=== PATIENT | male | born 1950 | race American Indian/Alaskan Native ===

== ENCOUNTER 2019-10-01 02:44 | Emergency (ER) | payer MEDICARE ==
[2019-10-01 04:17] LABS: Basophils % (Auto) 0.7 % (0.0-1.8); Eosinophils # (Auto) 0.1 K/mm3 (0.0-0.4); Hematocrit 34.9 % (35.5-45.6); Hemoglobin 11.9 gm/dl (11.8-15.2); Lymphocytes # (Auto) 1.5 K/mm3 (1.2-5.4); Lymphocytes % (Auto) 22.7 % (13.4-35.0); Mean Corpuscular HGB Conc 34 % (32-34); Mean Corpuscular Volume 93 fl (84-94); Monocytes # (Auto) 0.6 K/mm3 (0.0-0.8); Monocytes % (Auto) 8.8 % (0.0-7.3); Platelet Count 220 K/mm3 (140-440); Red Blood Count 3.75 M/mm3 (3.65-5.03)
[2019-10-01 04:38] LABS: Albumin 4.1 g/dL (3.9-5)
--- NOTE | 2019-10-01 04:57 | Event Note ---
Date: 10/01/19 69-year-old gentleman presenting with difficulty having a bowel movement x4 hours. Has no additional complaints. Abdomen is soft and benign, with no rebound, guarding or peritoneal signs, and normal bowel sounds. Has no history of abdominal surgeries. He believes that he is constipated. Denies fever, cough, sands virus Laboratory studies sent prior to my personal evaluation. Suspect constipation. X-ray abdomen pelvis is ordered. Vital Signs 10/01/19 03:27 Temperature 98.0 F Pulse Rate 51 L Respiratory 18 Rate Blood Pressure 121/54 [Right] O2 Sat by Pulse 99 Oximetry Lab Results 10/01/19 10/01/19 Range/Units 03:37 03:37 WBC 6.6 (4.5-11.0) K/mm3 RBC 3.75 (3.65-5.03) M/mm3 Hgb 11.9 (11.8-15.2) gm/dl Hct 34.9 L (35.5-45.6) % MCV 93 (84-94) fl MCH 32 (28-32) pg MCHC 34 (32-34) % RDW 14.0 (13.2-15.2) % Plt Count 220 (140-440) K/mm3 Lymph % (Auto) 22.7 (13.4-35.0) % [place] % (Auto) 8.8 H (0.0-7.3) % Eos % (Auto) 2.0 (0.0-4.3) % Baso % (Auto) 0.7 (0.0-1.8) % Lymph # 1.5 (1.2-5.4) K/mm3 [place] # 0.6 (0.0-0.8) K/mm3 Eos # 0.1 (0.0-0.4) K/mm3 Baso # 0.0 (0.0-0.1) K/mm3 Seg Neutrophils % 65.8 (40.0-70.0) % Seg Neutrophils # 4.3 (1.8-7.7) K/mm3 Sodium 137 (137-145) mmol/L Potassium 3.9 (3.6-5.0) mmol/L Chloride 102.0 (98-107) mmol/L Carbon Dioxide 22 (22-30) mmol/L Anion Gap 17 mmol/L BUN 25 H (9-20) mg/dL Creatinine 1.7 H (0.8-1.5) mg/dL Estimated GFR 48 ml/min BUN/Creatinine Ratio 15 % Glucose 141 H (75-100) mg/dL Calcium 9.0 (8.4-10.2) mg/dL Total Bilirubin 0.30 (0.1-1.2) mg/dL AST 18 (5-40) units/L ALT 12 (7-56) units/L Alkaline Phosphatase 84 (35-129) units/L Total Protein 7.1 (6.3-8.2) g/dL Albumin 4.1 (3.9-5) g/dL Albumin/Globulin Ratio 1.4 % Lipase 17 (13-60) units/L
--- NOTE | 2019-10-01 05:29 | XRay Report ---
SUPINE ABDOMEN 10/01/2019 INDICATION / CLINICAL INFORMATION: constipation. COMPARISON: None available. FINDINGS: Fecal retention is noted in the right colon, splenic flexure and rectosigmoid. No significant small bowel gaseous distention. Signer Name: Mark Varghese MD Signed: 10/01/2019 5:25 AM Workstation Name: [id number]
[2019-10-01] MEDS ORDERED: LACTULOSE 20 GM/30 ML ORAL LIQD PO ONE (06:36)
--- NOTE | 2019-10-01 06:41 | Emergency Department Report ---
HPI - General Chief Complaint: Abdominal Pain Time Seen by Provider: 10/01/19 06:13 - HPI HPI: Room 3 The patient is a 69-year-old male present with a chief complaint of constipation. Patient states she has been constipated since midnight. Patient states she has abdominal pain/fullness feeling as though he has to have a bowel movement but he is been unable to pass stool. Patient states his last bowel movement occurred 09/29/2019 and was within normal limits. Patient denies nausea or vomiting. ED Past Medical Hx - Past Medical History Hx Hypertension: Yes Hx of Cancer: Yes (bone and prostate s/p xrt ~2012) - Surgical History Past Surgical History?: Yes Additional Surgical History: foot, prostate - Family History Family history: no significant - Social History Smoking Status: Former Smoker (None since 1982) Substance Use Type: None (Denies illicit drug use), Alcohol (Occasional) - Medications Home Medications: Home Medications Medication Instructions Recorded Confirmed Last Taken Type Docusate Sodium [Colace] 100 mg PO BID PRN #60 capsule 10/01/19 Unknown Rx [id number]/Sod Sulf,Bicarb,Cl/KCl 4,000 ml PO ONCE #4000 ml 10/01/19 Unknown Rx [Golytely Solution] ED Review of Systems ROS: Stated complaint: CONSTIPATION Other details as noted in HPI Constitutional: no symptoms reported Eyes: denies: eye pain ENT: denies: throat pain Respiratory: no symptoms reported Cardiovascular: denies: chest pain Endocrine: no symptoms reported Gastrointestinal: abdominal pain, constipation. denies: nausea, vomiting Musculoskeletal: denies: back pain Neurological: denies: headache Physical Exam - Physical Exam Vital Signs: Vital Signs 10/01/19 03:27 Temperature 98.0 F Pulse Rate 51 L Respiratory 18 Rate Blood Pressure 121/54 [Right] O2 Sat by Pulse 99 Oximetry Physical Exam: GENERAL: The patient is well-developed well-nourished male lying on stretcher not appearing to be in acute distress. [] HEENT: Normocephalic. Atraumatic. Extraocular motions are intact. Patient has moist mucous membranes. NECK: Supple. Trachea midline CHEST/LUNGS: There is no respiratory distress noted. HEART/CARDIOVASCULAR: Regular. There is no tachycardia. There is no gallop rub or murmur. ABDOMEN: Abdomen is soft, nontender. Patient has normal bowel sounds. There is no abdominal distention. SKIN: There is no rash. There is no edema. There is no diaphoresis. NEURO: The patient is awake, alert, and oriented. The patient is cooperative. The patient has normal speech MUSCULOSKELETAL: There is no evidence of acute injury. RECTAL: Fecal impaction present. To no evidence of stool removed. Patient did not tolerate well and procedure had to be aborted ED Course Vital Signs 10/01/19 03:27 Temperature 98.0 F Pulse Rate 51 L Respiratory 18 Rate Blood Pressure 121/54 [Right] O2 Sat by Pulse 99 Oximetry - Reevaluation(s) Reevaluation #1: 10/01/19 10:04 Patient states he passed a small amount of stool and feels slightly improved. ED Medical Decision Making - Lab Data Result diagrams: 10/01/19 03:37 10/01/19 03:37 - Radiology Data Radiology results: report reviewed (Abdominal x-ray), image reviewed (Abdominal x-ray) interpreted by me: Abdominal x-ray-no air-fluid levels seen Findings [facility] [address] [place] [address] XRay Report Signed Patient: AUDELIA ORONA JR MR#: [id number] 51 : 1950 Acct:[id number] Age/Sex: 69 / M ADM Date: 10/01/19 Loc: ED Attending Dr: Ordering Physician: MARCUS MEDINA MD Date of Service: 10/01/19 Procedure(s): XR abdomen 2V Accession Number(s): [id number] cc: MARCUS MEDINA MD Fluoro Time In Minutes: SUPINE ABDOMEN 10/01/2019 INDICATION / CLINICAL INFORMATION: con stipation. COMPARISON: None available. FINDINGS: Fecal retention is noted in the right colon, splenic flexure and rectosigmoid. No significant small bowel gaseous distention. Signer Name: Mark Varghese MD Signed: 10/01/2019 5:25 AM Workstation Name: [id number] Transcribed By: ZOE Dictated By: Mark Varghese MD Electronically Authenticated By: Mark Varghese MD Signed Date/Time: 10/01/19524 DD/ 3 TD/TT: - Differential Diagnosis Constipation, obstruction, Critical care attestation.: If time is entered above; I have spent that time in minutes in the direct care of this critically ill patient, excluding procedure time. ED Disposition Clinical Impression: Constipation Disposition: DC-01 TO HOME OR SELFCARE Is pt being admited?: No Does the pt Need Aspirin: No Condition: Stable Instructions: Constipation (ED) Additional Instructions: Return to the emergency department should you develop worsening symptoms, inability to tolerate food or liquids, high fever or any other concerns Prescriptions: Docusate Sodium [Colace] 100 mg PO BID PRN #60 capsule PRN Reason: Constipation [id number]/Sod Sulf,Bicarb,Cl/KCl [Golytely Solution] 4,000 ml PO ONCE #4000 ml Referrals: PRIMARY CARE, [Primary Care Provider] - 3-5 Days LEEANNE WILKINSON MD [Staff Physician] - 3-5 Days (Dr. Wilkinson is a materials engineering technician. Please follow-up with him for further evaluation) Time of Disposition: 10:08
[2019-10-01] MEDS ORDERED: LACTULOSE 20 GM/30 ML ORAL LIQD ONE (08:42)
[2019-10-01 10:34] VITALS: BP 170/95
== END 2019-10-01 11:21 | disposition home or self-care (01) ==
LOC: ED 02:44
DX: K59.00 Constipation, unspecified (principal); I10 Essential (primary) hypertension; Z87.891 Personal history of nicotine dependence; Z85.3 Personal history of malignant neoplasm of breast; Z85.46 Personal history of malignant neoplasm of prostate
CPT/HCPCS: 36415; 74019; 80053; 83690; 85025